=== PATIENT | female | born 1980 | race African-American/Black ===

== ENCOUNTER 2019-03-27 02:38 | Emergency (ER) | payer SELFPAY ==
--- NOTE | 2019-03-27 08:12 | CT ---
PRELIMINARY REPORT/[facility]/EMERGENCY AFTER HOURS PROCEDURE: EXAM: CT Angiography Chest With Contrast EXAM DATE/TIME: 03/27/2019 3:47 AM CLINICAL HISTORY: 38 years old, female; Chest pain; Patient HX: 38 y/o F presents to ED via transfer from another [facility] ED for cp R/O pe. PT describes x 4 days of productive cough, nasal congestion; X 1 day of fever tmax of 102f, n/v. PT describes that she began to experience cp yesterday and noting pink-tinged sput um with cough TECHNIQUE: Imaging protocol: Computed tomographic angiography of the chest with intravenous contrast. 3D rendering: MIP reconstructed images were created and reviewed. COMPARISON: No relevant prior studies available. FINDINGS: Pulmonary arteries: Limited study due to motion, streak and mottle artifacts and suboptimal contrast opacification of the pulmonary arteries. There is no definite evidence of pulmonary embolism to the segmental level. Aorta: No acute findings. No aortic aneurysm or dissection. Lungs: Limited evaluation of the lung parenchyma due to motion. No focal consolidation or mass. Pleural space: No pneumothorax. No pleural effusion. Heart: No cardiomegaly. No pericardial effusion. Mediastinum: 1.8 cm anterior mediastinal nodular soft tissue density. Lymph nodes: No significant adenopathy. Bones/joints: No acute fracture. Soft tissues: No acute findings. IMPRESSION: Limited study. No definite evidence of pulmonary embolism to the segmental level. Anterior mediastinal nodular soft tissue density could relate to thymic hyperplasia; recommend comparison with prior studies if available and consider followup/further imaging evaluation to exclud e adenopathy/thymic mass. Thank you for allowing us to participate in the care of your patient. Dictated and Authenticated by: Richy Quinn MD 03/27/2019 4:55 AM Central Time ([place] & [place]) FINAL REPORT: CT PULMONARY ANGIOGRAM WITH IV CONTRAST AND 3-DIMENSIONAL RECONSTRUCTIONS: PROVIDED CLINICAL HISTORY: Chest pain. COMPARISON: None. FINDINGS/IMPRESSION: Agree with the preliminary interpretation given by LAKIA. Transcribed Date/Time: 03/27/2019 9:07 AM
[2019-03-27] MEDS ORDERED: ISOVUE-370 76%-LOCM 1 ML ONE (10:33)
== END 2019-03-27 05:33 | disposition home or self-care (01) ==
LOC: ERS 02:38
DX: J20.9 Acute bronchitis, unspecified (principal)
CPT/HCPCS: 71275; Q9966

== ENCOUNTER 2020-05-16 22:03 | Emergency (ER) | payer MEDICAID, SELFPAY ==
--- NOTE | 2020-05-17 06:26 | CT ---
CT HEAD WITHOUT CONTRAST: Date: 05/16/2020 INDICATION: Fall with injury to head. On blood thinners. Comparison made to recent head CT of 04/24/2020. FINDINGS: Ventricles have normal size and position. No evidence of intracranial hemorrhage. No mass, edema, inf arct, or other acute process. No interval change. Bony calvarium appears intact. IMPRESSION: No acute findings. POS: [facility]
== END 2020-05-17 00:06 | disposition home or self-care (01) ==
LOC: ERS 22:03
DX: S96.912A Strain of unspecified muscle and tendon at ankle and foot level, left foot, initial encounter (principal); I10 Essential (primary) hypertension; J45.909 Unspecified asthma, uncomplicated; E66.9 Obesity, unspecified; E11.9 Type 2 diabetes mellitus without complications; W19.XXXA Unspecified fall, initial encounter
CPT/HCPCS: 70450; 93005

== ENCOUNTER 2020-12-16 10:22 | Observation (INO) | payer SELFPAY ==
[2020-12-16] MEDS ORDERED: Nitroglycerin 2% Ointment 1 INCH/1 GM Packet ONE (10:50)
[2020-12-16] MEDS ORDERED: Acetaminophen 325 MG TAB PO PRN (12:05)
[2020-12-16] MEDS ORDERED: Guaifenesin DM 100-10/5 ML UDCUP PO PRN (12:05)
[2020-12-16] MEDS ORDERED: Senokot S 8.6-50 MG TAB PO PRN (12:05)
[2020-12-16] MEDS ORDERED: Ondansetron PF 4 MG/2 ML Vial IVP PRN (12:05)
[2020-12-16] MEDS ORDERED: HumaLOG 300 UNITS/3 ML VIAL SC PRN ×2 (12:12→21:35)
[2020-12-16] MEDS ORDERED: Dextrose 50% Abboject 50 ML SYRINGE SLOW IVP PRN ×2 (12:12→21:35)
[2020-12-16] MEDS ORDERED: Dextrose 5% in Water 1,000 ML IV PRN ×2 (12:12→21:35)
[2020-12-16] MEDS ORDERED: Albuterol Sulfate 2.5 mg/3 ml Neb NEB PRN (12:14)
[2020-12-16] MEDS ORDERED: Albuterol Sulfate 2.5 mg/3 ml Neb NEB SCH (13:00)
[2020-12-16 14:01] VITALS: BMI 72.5
[2020-12-16 14:49] LABS: Troponin I Less than 0.010 ng/mL (< 0.028)
[2020-12-16] MEDS: Nitroglycerin 2% Ointment 1 INCH/1 GM Packet TOP SCH ×2 (15:14→22:27)
[2020-12-16 17:57] LABS: Troponin I Less than 0.010 ng/mL (< 0.028)
[2020-12-16] MEDS: metFORMIN 500 MG TAB PO SCH (18:49)
[2020-12-16] MEDS: Mometasone 200 MCG/Formoterol 5 MCG 120 PUFF INHALER INH SCH (19:54)
[2020-12-16] MEDS ORDERED: Montelukast Sodium 10 mg Tablet PO SCH (21:00)
[2020-12-16] MEDS ORDERED: Losartan 25 MG TAB PO SCH (21:00)
[2020-12-16] MEDS ORDERED: Atorvastatin Calcium 40 MG TAB PO SCH (21:00)
[2020-12-16] MEDS: Lantus 1000 UNITS/10 ML VIAL SC SCH (21:25)
[2020-12-16] MEDS: Rivaroxaban 15 MG TAB PO SCH (21:26)
[2020-12-16 22:03] LABS: SARS-CoV-2 PCR by NAA Not Detected (NotDetected)
[2020-12-17 05:38] LABS: #Basophils 0.1 thou/uL (0.0-0.2); #Eosinphils 0.3 thou/uL (0.0-0.7); #Lymphocytes 2.2 thou/uL (1.20-3.40); #Monocytes 0.4 thou/uL (0.11-0.59); #Neutrophils 4.3 thou/uL (1.40-6.50); %Basophils 1.3 % (0.0-1.0); %Eosinophils 4.1 % (0.0-10.0); %Lymphocytes 30.4 % (21.0-51.0); %Monocytes 5.8 % (0.0-10.0); %Neutrophils 58.4 % (42.0-75.0); Hemoglobin 10.5 g/dL (12.0-16.0); Mean Corpuscular Hemoglobin 24.1 pg (27.0-31.0); Mean Platelet Volume 8.6 fL (7.4-10.4); Platelet Count 346 thou/uL (130-400); RBC Distribution Width 16.4 % (11.5-14.5); Red Blood Cell (RBC) Count 4.33 mill/uL (4.20-5.40); White Blood Cell (WBC) Count 7.3 thou/uL (4.8-10.8)
[2020-12-17 05:58] LABS: ALT (SGPT) 8 U/L (8-55); AST (SGOT) 9 U/L (5-34); Albumin 3.1 g/dL (3.5-5.0); Alkaline Phosphatase 87 U/L (40-110); Anion Gap 7 mmol/L (10-20); BUN (Urea Nitrogen) 12 mg/dL (7.0-18.7); Bilirubin, Total 0.2 mg/dL (0.2-1.2); Calc. Creatinine Clearance 258 mL/min (70-130); Calcium 8.9 mg/dL (7.8-10.44); Carbon Dioxide 30 mmol/L (22-29); Cardiac Risk 4.6 (Less than 4.5); Chloride 100 mmol/L (98-107); Cholesterol 161 mg/dl (< 200 Desired); Globulin 4.1 g/dL (2.4-3.5); Glucose 220 mg/dL (70-105); HDL Cholesterol 35 mg/dL (>60 Neg Risk); LDL Cholesterol, Calculated 105 mg/dL; Potassium 4.4 mmol/L (3.5-5.1); Protein, Total 7.2 g/dL (6.0-8.3); Sodium 133 mmol/L (136-145); Triglycerides 107 mg/dL (Less than 150)
[2020-12-17 06:11] LABS: Hemoglobin A1c 7.5 % (4.0-6.0)
[2020-12-17] MEDS: Nitroglycerin 2% Ointment 1 INCH/1 GM Packet TOP SCH ×3 (06:26→13:11)
[2020-12-17] MEDS: Mometasone 200 MCG/Formoterol 5 MCG 120 PUFF INHALER INH SCH (07:58)
[2020-12-17] MEDS ORDERED: predniSONE 20 MG TAB PO SCH (08:00)
[2020-12-17] MEDS: metFORMIN 500 MG TAB PO SCH (08:24)
[2020-12-17] MEDS: Rivaroxaban 15 MG TAB PO SCH (08:27)
[2020-12-17] MEDS ORDERED: Hydrochlorothiazide 25 MG TAB PO SCH (09:00)
[2020-12-17] MEDS ORDERED: Aspirin Chewable 81 MG TAB PO SCH (09:00)
[2020-12-17] MEDS ORDERED: Lantus 1000 UNITS/10 ML VIAL SC SCH (09:00)
[2020-12-17] MEDS ORDERED: Regadenoson 0.4 MG/5 ML SYRINGE ONE (09:26)
[2020-12-17 12:46] VITALS: BP 129/69; TEMP 98.2
[2020-12-17] MEDS: Lantus 1000 UNITS/10 ML VIAL SC SCH (13:21)
== END 2020-12-17 16:10 | disposition home or self-care (01) ==
LOC: ERS 10:22 → 2SW 11:54
PROVIDERS: ADMIT Internal Medicine; ATTEND Internal Medicine
DX: R07.89 Other chest pain (principal); J45.909 Unspecified asthma, uncomplicated; I10 Essential (primary) hypertension; E78.5 Hyperlipidemia, unspecified; E11.9 Type 2 diabetes mellitus without complications; E66.01 Morbid (severe) obesity due to excess calories; Z68.45 Body mass index [BMI] 70 or greater, adult; Z79.01 Long term (current) use of anticoagulants; Z79.4 Long term (current) use of insulin; Z79.51 Long term (current) use of inhaled steroids; Z79.899 Other long term (current) drug therapy; Z86.711 Personal history of pulmonary embolism; Z20.822 Contact with and (suspected) exposure to COVID-19
CPT/HCPCS: 36415; 36416; 78452; 80053; 80061; 83036; 83735; 85025; 93005; 93017; 93306; 94640; A9500; G0378; J1815; J2785; J7512; J7611; U0003; U0005

== ENCOUNTER 2021-01-23 23:50 | Inpatient (IN) | payer MEDICAID, SELFPAY ==
[2021-01-24 02:07] VITALS: BMI 73.7
[2021-01-24] MEDS ORDERED: hydrALAZINE 20 MG/ML VIAL SLOW IVP PRN (02:47)
[2021-01-24] MEDS ORDERED: Ondansetron ODT 4 MG TAB PO PRN (02:47)
[2021-01-24] MEDS ORDERED: Dextrose 5% in Water 1,000 ML IV PRN ×2 (02:47→10:55)
[2021-01-24] MEDS ORDERED: Dextrose 50% Abboject 50 ML SYRINGE SLOW IVP PRN ×2 (02:47→10:55)
[2021-01-24] MEDS ORDERED: Ondansetron PF 4 MG/2 ML Vial IVP PRN (02:47)
[2021-01-24] MEDS ORDERED: HumaLOG 300 UNITS/3 ML VIAL SC PRN ×4 (02:47→10:55)
[2021-01-24] MEDS ORDERED: Mometasone 200 MCG/Formoterol 5 MCG 120 PUFF INHALER INH SCH ×2 (03:00→05:47)
[2021-01-24] MEDS ORDERED: Montelukast Sodium 10 mg Tablet PO SCH ×2 (03:00→21:00)
[2021-01-24] MEDS: methylPREDNISolone Sod Succ 40 MG VIAL IVP SCH ×3 (03:31→16:27)
[2021-01-24] MEDS: Benzonatate 100 MG CAP PO PRN ×3 (03:31→21:28)
[2021-01-24 05:57] LABS: #Eosinphils 0.1 thou/uL (0.0-0.7); #Lymphocytes 0.7 thou/uL (1.20-3.40); #Monocytes 0.1 thou/uL (0.11-0.59); #Neutrophils 9.3 thou/uL (1.40-6.50); %Eosinophils 0.8 % (0.0-10.0); %Lymphocytes 6.9 % (21.0-51.0); %Monocytes 0.9 % (0.0-10.0); %Neutrophils 91.4 % (42.0-75.0); Hemoglobin 11.3 g/dL (12.0-16.0); Mean Corpuscular HGB CONC 32.6 g/dL (32.0-36.0); Mean Corpuscular Hemoglobin 22.9 pg (27.0-31.0); Mean Corpuscular Volume 70.1 fL (78.0-98.0); Mean Platelet Volume 9.9 fL (7.4-10.4); Platelet Count 373 thou/uL (130-400); RBC Distribution Width 16.2 % (11.5-14.5); Red Blood Cell (RBC) Count 4.96 mill/uL (4.20-5.40); White Blood Cell (WBC) Count 10.2 thou/uL (4.8-10.8)
[2021-01-24 06:19] LABS: Anion Gap 17 mmol/L (10-20); BUN (Urea Nitrogen) 16 mg/dL (7.0-18.7); Calc. Creatinine Clearance 222 mL/min (70-130); Calcium 9.3 mg/dL (7.8-10.44); Carbon Dioxide 25 mmol/L (22-29); Chloride 97 mmol/L (98-107); Glucose 304 mg/dL (70-105); Potassium 4.6 mmol/L (3.5-5.1); Sodium 134 mmol/L (136-145)
[2021-01-24] MEDS: Atorvastatin Calcium 20 MG TAB PO SCH (09:39)
[2021-01-24] MEDS: Famotidine 20 MG TAB PO SCH ×2 (09:39→21:27)
[2021-01-24] MEDS: Losartan 25 MG TAB PO SCH (09:40)
[2021-01-24] MEDS: Lantus 1000 UNITS/10 ML VIAL SC SCH (09:40)
[2021-01-24] MEDS: Lisinopril/Hydrochlorothiazide 10 mg/12.5 mg Tablet PO SCH (09:41)
[2021-01-24] MEDS: Guaifenesin DM 100-10/5 ML UDCUP PO PRN (09:49)
[2021-01-24] MEDS: HumaLOG 300 UNITS/3 ML VIAL SC SCH ×2 (13:25→16:28)
[2021-01-24] MEDS: Mometasone 200 MCG/Formoterol 5 MCG 120 PUFF INHALER INH SCH (18:35)
[2021-01-24] MEDS ORDERED: Rivaroxaban 10 MG TAB PO SCH (21:00)
[2021-01-24] MEDS: Acetaminophen 500 MG TAB PO PRN (21:37)
[2021-01-24] MEDS ORDERED: Fluticasone Propionate Nasal Spray 16 gm Bottle NASAL SCH (22:45)
[2021-01-25 05:43] LABS: #Lymphocytes 1.3 thou/uL (1.20-3.40); #Monocytes 0.7 thou/uL (0.11-0.59); #Neutrophils 9.2 thou/uL (1.40-6.50); %Basophils 0.1 % (0.0-1.0); %Lymphocytes 11.6 % (21.0-51.0); %Monocytes 5.9 % (0.0-10.0); %Neutrophils 82.4 % (42.0-75.0); Hemoglobin 10.9 g/dL (12.0-16.0); Mean Corpuscular HGB CONC 34.2 g/dL (32.0-36.0); Mean Corpuscular Hemoglobin 24.4 pg (27.0-31.0); Mean Corpuscular Volume 71.3 fL (78.0-98.0); Mean Platelet Volume 8.4 fL (7.4-10.4); Platelet Count 394 thou/uL (130-400); RBC Distribution Width 16.1 % (11.5-14.5); Red Blood Cell (RBC) Count 4.48 mill/uL (4.20-5.40); White Blood Cell (WBC) Count 11.1 thou/uL (4.8-10.8)
[2021-01-25 05:54] LABS: Anion Gap 14 mmol/L (10-20); BUN (Urea Nitrogen) 13 mg/dL (7.0-18.7); Calc. Creatinine Clearance 253 mL/min (70-130); Calcium 9.6 mg/dL (7.8-10.44); Carbon Dioxide 26 mmol/L (22-29); Chloride 99 mmol/L (98-107); Glucose 227 mg/dL (70-105); Potassium 4.2 mmol/L (3.5-5.1); Sodium 135 mmol/L (136-145)
[2021-01-25] MEDS: Mometasone 200 MCG/Formoterol 5 MCG 120 PUFF INHALER INH SCH ×2 (06:54→18:19)
[2021-01-25] MEDS ORDERED: methylPREDNISolone Sod Succ 40 MG VIAL IVP SCH (09:00)
[2021-01-25] MEDS ORDERED: Fluticasone Propionate Nasal Spray 16 gm Bottle NASAL SCH (09:00)
[2021-01-25] MEDS: Atorvastatin Calcium 20 MG TAB PO SCH (10:06)
[2021-01-25] MEDS: Famotidine 20 MG TAB PO SCH (10:06)
[2021-01-25] MEDS: Lisinopril/Hydrochlorothiazide 10 mg/12.5 mg Tablet PO SCH (10:07)
[2021-01-25] MEDS: Losartan 25 MG TAB PO SCH (10:07)
[2021-01-25] MEDS: HumaLOG 300 UNITS/3 ML VIAL SC SCH ×3 (10:08→18:10)
[2021-01-25] MEDS: Acetaminophen 500 MG TAB PO PRN (10:25)
[2021-01-25] MEDS: Lantus 1000 UNITS/10 ML VIAL SC SCH (10:27)
[2021-01-25] MEDS: Guaifenesin DM 100-10/5 ML UDCUP PO PRN (12:54)
[2021-01-25 16:53] VITALS: BP 142/92; TEMP 97.9
== END 2021-01-25 19:40 | disposition home or self-care (01) | DRG 202 ==
LOC: OBSVTOIN 23:50 → 2SW 23:50
PROVIDERS: ADMIT Family Medicine; ATTEND Hospitalist
DX: J21.0 Acute bronchiolitis due to respiratory syncytial virus (principal); J45.901 Unspecified asthma with (acute) exacerbation; Z68.45 Body mass index [BMI] 70 or greater, adult; I10 Essential (primary) hypertension; E66.01 Morbid (severe) obesity due to excess calories; B97.4 Respiratory syncytial virus as the cause of diseases classified elsewhere; E11.9 Type 2 diabetes mellitus without complications; Z86.711 Personal history of pulmonary embolism; Z79.01 Long term (current) use of anticoagulants; Z98.51 Tubal ligation status; Z79.4 Long term (current) use of insulin; Z86.718 Personal history of other venous thrombosis and embolism
CPT/HCPCS: 36415; 36416; 80048; 85025; 94640; J1815; J2920; J7620